=== PATIENT | female | born 1950 | race African-American/Black ===

== ENCOUNTER 2018-01-22 14:44 | Emergency (ER) | payer BC, OTHER ==
[2018-01-22 14:50] VITALS: BMI 21.9
[2018-01-22 14:53] VITALS: TEMP 98.3
[2018-01-22] MEDS ORDERED: ACETAMINOPHEN 325 MG TABLET (FP) PO ONE (16:04)
[2018-01-22] MEDS ORDERED: CYCLOBENZAPRINE HCL 10 MG TABLET (FP) PO ONE (16:04)
[2018-01-22] MEDS ORDERED: IBUPROFEN 600 MG TABLET (FP) PO ONE (16:04)
--- NOTE | 2018-01-22 16:04 | PDOC ---
History of Present Illness - General History Source: Patient Exam Limitations: No Limitations - History of Present Illness Initial Comments: 01/22/18 16:15 The patient is a 68 year old female with history of hypertension, previously treated with Amlodipine, not currently medication compliant, who presents to the after noting her blood pressure was elevated over the weekend. 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 She states was evaluated by her nurse and found to be hypertensive. Today, her blood pressure was approximately 150/90. The patient does report some intermittent posterior neck pain that is worse with movement. No headache, numbness or tingling. No chest pain or SOB. No peripheral edema. No nausea, vomiting or diaphoresis. PCP is out of network. <Theresa Jaimes - Last Filed: 01/22/18 16:15> <Melisa Lou - Last Filed: 01/22/18 16:35> - General Chief Complaint: Blood Pressure Problem Stated Complaint: HTN Time Seen by Provider: 01/22/18 14:49 Past History <Theresa Jaimes - Last Filed: 01/22/18 16:15> - Past Medical History COPD: No HTN: Yes - Suicide/Smoking/Psychosocial Hx Smoking History: Never smoked Hx Alcohol Use: No Drug/Substance Use Hx: No Substance Use Type: None <Melisa Lou - Last Filed: 01/22/18 16:35> - Past Medical History Allergies/Adverse Reactions: Allergies Allergy/AdvReac Type Severity Reaction Status Date / Time No Known Allergies Allergy Verified 01/22/18 14:45 Home Medications: Ambulatory Orders NK [No Known Home Medication] 01/22/18 Review of Systems - Review of Systems Comments:: 01/22/18 16:20 GENERAL/CONSTITUTIONAL: No fever or chills. No weakness. HEAD, EYES, EARS, NOSE AND THROAT: No change in vision. No ear pain or discharge. No sore throat. GASTROINTESTINAL: No nausea, vomiting, diarrhea or constipation. GENITOURINARY: No dysuria, frequency, or change in urination. CARDIOVASCULAR: No chest pain or shortness of breath. RESPIRATORY: No cough, wheezing, or hemoptysis. MUSCULOSKELETAL: +Neck pain. No joint or muscle swelling or pain. No back pain. SKIN: No rash NEUROLOGIC: No headache, vertigo, loss of consciousness, or change in strength/ sensation. ENDOCRINE: No increased thirst. No abnormal weight change. HEMATOLOGIC/LYMPHATIC: No anemia, easy bleeding, or history of blood clots. ALLERGIC/IMMUNOLOGIC: No hives or skin allergy. <Theresa Jaimes - Last Filed: 01/22/18 16:15> *Physical Exam - Vital Signs Last Vital Signs Temp Pulse Resp BP Pulse Ox 98.3 F 78 17 146/96 100 01/22/18 14:45 01/22/18 14:45 01/22/18 14:45 01/22/18 14:45 01/22/18 14:45 - Physical Exam Comments: 01/22/18 16:21 Constitutional: Awake, alert, oriented. No acute distress. Head: Normocephalic. Atraumatic Eyes: PERRL. EOMI. Conjunctivae are not pale. ENT: Mucous membranes are moist and intact. Posterior pharynx without exudates or erythema. Uvula midline. Neck: Supple. Full ROM. No lymphadenopathy. Bilateral paraspinal tenderness to palpation with no midline tenderness. No deformity or step-off. Cardiovascular: Regular rate. Regular rhythm. S1, S2 regular. Distal pulses are 2+ and symmetric. Pulmonary/Chest: No evidence of respiratory distress. Clear to auscultation bilaterally No wheezing, rales or rhonchi. Abdominal: Soft and non-distended. There is no tenderness. No rebound, guarding or rigidity. No organomegaly. No palpable masses. Good bowel sounds. Back: No CVA tenderness. No midline spinal tenderness. Musculoskeletal: No edema. No cyanosis. No clubbing. Full range of motion in all extremities. Nocalf tenderness. Radial/pedal pulses are intact and 2+ bilaterally Skin: Skin is warm and dry. No petechiae. No purpura. Neurological: Alert and oriented to person, place, and time. Cranial nerves II -XII are grossly intact. Normal speech. Strength is grossly symmetric. No sensory deficits. Psychiatric: Good eye contact. Normal interaction, affect and behavior. <Theresa Jaimes - Last Filed: 01/22/18 16:15> - Vital Signs Last Vital Signs Temp Pulse Resp BP Pulse Ox 98.3 F 78 17 146/96 100 01/22/18 14:45 01/22/18 14:45 01/22/18 14:45 01/22/18 14:45 01/22/18 14:45 <Melisa Lou - Last Filed: 01/22/18 16:35> ED Treatment Course - Medications Given in the ED: ED Medications Discontinued Medications Generic Name Dose Route Start Last Admin Trade Name Rogelio PRN Reason Stop Dose Admin Acetaminophen 975 mg 01/22/18 16:04 01/22/18 16:08 Tylenol - PO 01/22/18 16:05 975 mg ONCE ONE Administration Cyclobenzaprine HCl 10 mg 01/22/18 16:04 01/22/18 16:09 Flexeril - PO 01/22/18 16:05 10 mg ONCE ONE Administration <Theresa Jaimes - Last Filed: 01/22/18 16:15> Medical Decision Making - Medical Decision Making 01/22/18 16:31 a/p: 68yo female with neck pain since monday. Denies trauma -no midline ttp -paraspinal ttp, suspect muscle spasm given limited ROM of neck -neck is supple -no meningeal signs -neuro intact -will give pain control and muscle relaxer and reassess -bp 146/93 -recommend outpt follow upwith PMD for further eval of elevated bp -recommended dietary changes and watching salt intake -discussed keeping diary of bp to take to PMD. -pt has not been seen by PMD in 2 years <Melisa Lou - Last Filed: 01/22/18 16:35> *DC/Admit/Observation/Transfer - Attestations Scribe Attestion: 01/22/18 16:26 Documentation prepared by Theresa Jaimes, acting as medical and health services manager for Melisa oLu DO. <Theresa Jaimes - Last Filed: 01/22/18 16:15> - Discharge Dispostion Admit: No - Attestations Physician Attestion: 01/22/18 16:35 I, Dr. Melisa Lou DO, attest that this document has been prepared under my direction and personally reviewed by me in its entirety. I further attest, that it accurately reflects all work, treatment, procedures and medical decision -making performed by me. <Melisa Lou - Last Filed: 01/22/18 16:35> Diagnosis at time of Disposition: Elevated blood pressure, situational, Neck pain - Discharge Dispostion Disposition: HOME Condition at time of disposition: Stable - Referrals Referrals: Kevon Adrian MD [Staff Physician] - - Patient Instructions Printed Discharge Instructions: DI for High Blood Pressure, How to Monitor Your Blood Pressure at Home Additional Instructions: Please call your PMD tomorrow and schedule a follow up appointment. Please take your blood pressure first thing in the AM and keep a diary of the readings to take to your PMD. Please return to the ED if you develop headache, blurred vision, chest pain, or any further complaints. Please watch your salt intake. Please drink plenty of water. Please urinate prior to checking your blood pressure. Please take tylenol or motrin for your neck pain.
[2018-01-22] MEDS ORDERED: CYCLOBENZAPRINE HCL 10 MG TABLET (FP) ONE (16:06)
[2018-01-22] MEDS ORDERED: ACETAMINOPHEN 325 MG TABLET (FP) ONE (16:06)
[2018-01-22 16:34] VITALS: BP 140/80; PULSE 86
== END 2018-01-22 16:41 | disposition home or self-care (01) ==
LOC: FER 14:44
DX: R03.0 Elevated blood-pressure reading, without diagnosis of hypertension (principal); M54.2 Cervicalgia; I10 Essential (primary) hypertension
CPT/HCPCS: 99282-25

== ENCOUNTER 2025-01-13 22:21 | Emergency (ER) | payer BC, OTHER, MEDICARE ==
[2025-01-13 22:32] VITALS: BP 119/70; PULSE 85; RESP 16; BMI 21.9
[2025-01-13] MEDS ORDERED: ACETAMINOPHEN INJECTION 100 ML ONE (22:43)
[2025-01-13] MEDS: SODIUM CHLORIDE 1,000 ML IV ONE (22:53)
[2025-01-13] MEDS: ACETAMINOPHEN 1000 MG/100 ML BAG IVPB ONE (22:54)
[2025-01-13 23:24] LABS: ALBUMIN 4.3 g/dl (3.4-5.0); ALK PHOS 62 U/L (45-117); ANION GAP 10 mmol/L (4-13); BILIRUBIN,TOTAL 0.5 mg/dl (0.2-1); CALCIUM 8.9 mg/dl (8.5-10.1); CHLORIDE 97 mmol/L (98-107); CO2 26 mmol/L (21-32); CREATININE 1.9 mg/dl (0.6-1.3); GLUCOSE,RANDOM 165 mg/dl (74-106); MAGNESIUM 2.1 mg/dL (1.8-2.4); POTASSIUM 3.8 mmol/L (3.5-5.1); SGOT/AST 31 U/L (15-37); SGPT/ALT 22 U/L (7-52); SODIUM 133 mmol/L (136-145); TOT PROT 7.2 g/dl (6.4-8.2)
[2025-01-13 23:30] LABS: HEMATOCRIT 40.7 % (32.4-45.2); HEMOGLOBIN 13.4 G/dL (10.7-15.3); MCHC 32.9 g/dl (32.0-36.0); MEAN PLT VOLUME 8.5 fl (7.5-11.1); PLATELET COUNT 326.5 10^3/uL (134-434); RBC 4.96 10^6/uL (3.60-5.2); RDW 15.1 % (11.6-15.6); WHITE BLOOD COUNT 10.1 10^3/uL (4.0-10.8)
[2025-01-13 23:57] VITALS: TEMP 99.9
[2025-01-14 00:17] LABS: VENOUS BASE EXCESS -4.4 mmol/L (-2-2); VENOUS O2 SATURATION 50.1 % (70-80); VENOUS PCO2 34.7 mmHg (38-52); VENOUS PH 7.377 (7.310-7.410)
== END 2025-01-14 00:46 | disposition home or self-care (01) ==
LOC: FER 22:21
PROC: 3E033GC Introduction of Other Therapeutic Substance into Peripheral Vein, Percutaneous Approach (ICD-10-PCS; principal; 2025-01-13)
PROC: 3E0337Z Introduction of Electrolytic and Water Balance Substance into Peripheral Vein, Percutaneous Approach (ICD-10-PCS; 2025-01-13)
DX: J10.1 Influenza due to other identified influenza virus with other respiratory manifestations (principal); R50.9 Fever, unspecified; R09.89 Other specified symptoms and signs involving the circulatory and respiratory systems; Z20.822 Contact with and (suspected) exposure to COVID-19
CPT/HCPCS: 0241U-QW; 36415; 71045-TC-FY; 80053; 82550; 82553; 82803; 83605; 83735; 84484; 85027; 87040; 93005; 99285-25; J0131